=== PATIENT | male | born 1950 | race Caucasian/White ===

== ENCOUNTER 2022-03-18 14:19 | Outpatient (RCR) | payer MEDICARE, SELFPAY ==
--- NOTE | ~2022-03-18 | XR_ITS ---
EXAMINATION: XR FOOT, RIGHT CLINICAL INFORMATION: Great toe wound COMPARISON: Previous x-ray March 2022 TECHNIQUE: AP, lateral, and oblique views of the right foot. FINDINGS: There is increasing bone destruction or osteomyelitis of the proximal and distal phalanx of the great toe. There is a Hologic fracture of the proximal phalanx of the great toe. There is increasing overlying soft tissue swelling. There are old deformities of the second and third tarsal head that appear unchanged questionable for old fracture versus Freiberg infarction or osteonecrosis. There is arthritis and contracture of the IP joints. There are calcaneal spurs. XR/XR foot RT min 3V IMPRESSION: Increasing bone loss and destruction of the proximal and distal phalanx of the great toe and new pathologic fracture of the distal aspect of the proximal phalanx of the great toe. Increasing overlying soft tissue swelling.
--- NOTE | ~2022-03-18 | XR_ITS ---
EXAMINATION: XR FOOT, RIGHT CLINICAL INFORMATION: Abscess right great toe COMPARISON: None TECHNIQUE: AP, lateral, and oblique views of the right foot. FINDINGS: There is ostial lysis of the shaft of the distal phalanx of the great toe suggestive of osteomyelitis. There is surrounding soft tissue swelling and overlying dressing. There is deformity of the second and third metatarsal heads, question related to old trauma or possibly old Freiberg's infarction or osteonecrosis. There is mild arthritis at the first MTP joint. There are calcaneal spurs. There is soft tissue arterial calcification. XR/XR foot RT min 3V IMPRESSION: Osteomyelitis of the distal tuft of the great toe.
== END 2022-06-17 15:00 | disposition home or self-care (01) ==
LOC: HO.WCC 14:19
PROVIDERS: PCP Nurse Practitioner Adult Health; Visit Provider Surgery
DX: E11.621 Type 2 diabetes mellitus with foot ulcer (principal); L97.512 Non-pressure chronic ulcer of other part of right foot with fat layer exposed; E11.69 Type 2 diabetes mellitus with other specified complication; M86.671 Other chronic osteomyelitis, right ankle and foot; M20.61 Acquired deformities of toe(s), unspecified, right foot; Z79.82 Long term (current) use of aspirin; Z79.4 Long term (current) use of insulin; Z79.891 Long term (current) use of opiate analgesic; Z79.899 Other long term (current) drug therapy
CPT/HCPCS: 11042; 11044; 73630; 87071; 87077; 87186; 87205; 88304; 88305; 88311; 97597; 99212; 99213

== ENCOUNTER → 2022-05-21 08:47 | Outpatient (BNVA) | payer MEDICARE, SELFPAY | PROVIDERS: PCP Nurse Practitioner Adult Health; Visit Provider Surgery | DX: M86.9 Osteomyelitis, unspecified (principal); S91.101D Unspecified open wound of right great toe without damage to nail, subsequent encounter; E11.9 Type 2 diabetes mellitus without complications | CPT/HCPCS: 99202 ==

== ENCOUNTER 2022-07-07 07:30 | Day surgery (SDC) | payer MEDICARE, SELFPAY ==
[2022-06-08 12:09] VITALS: BP 141/67; PULSE 69; RESP 20; O2SAT 98; BMI 31.4
--- NOTE | 2022-06-08 12:24 | HO.ANESPROP2 ---
Documented by User: Latia Swan NP 07/05/22 08:12 HPI - Anesthesia Eval Consult details Narrative: 72yo M for Right Great Toe Amputation 07/07/22 CABG x 4 in 2019. Optimized per cardiology. +MRSA in toe wound, on doxycycline PMFSH Active Problems Active Problems: All Active Problems (Updated 06/08/22 @ 12:12 by Kelly Rodriguez RN) Non-healing open wound of toe (Acute) Osteomyelitis (Acute) CAD (coronary artery disease) (Acute) Diabetes mellitus (Acute) Past Medical History Medical History Arthritis CAD (coronary artery disease) COPD (chronic obstructive pulmonary disease) COVID-19 vaccine series completed Diabetes mellitus Elevated cholesterol History of MRSA infection HTN (hypertension) Ischemic cardiomyopathy Osteomyelitis Surgical History Surgical History H/O colonoscopy History of arthroplasty of right knee History of quadruple bypass Hx of fusion of cervical spine Hx of right hemicolectomy S/P debridement Social History Social History Are you a primary manager managed care to a significant other at home: No Do you presently have visiting nurse or other home services: Yes ([facility]NA for wound checks) Alcohol intake: never Patient Tobacco Use Status: Former Tobacco user Quit Date: 2018 Tobacco use type: Cigarette Cigarette Packs Per Day: 2.5 Cigarettes Per Day: 50.0 Years Smoked: 53 Use of substances other than those prescribed or required for medical reasons: Yes Substance Use Frequency: Weekly Have you been hit, kicked, punched, or otherwise hurt by someone within the past year? If so, by whom?: No Are you DNR?: No Advance Directives: No Advance Directives Information Provided: Yes (brochure given) Advance Directives on File: No Recently lost weight without trying: No Eating poorly because of decreased appetite: No Nutrition Risks: No Nutritional Risk Narrative Narrative: No recent illness No CP/SOB with yard work FBS ~99-117 Meds Allergies Allergy/AdvReac Type Severity Reaction Status Date / Time daptomycin Allergy Severe Anaphylaxis Verified 06/08/22 12:05 Home Medications Medication Instructions Recorded Confirmed Last Taken Type amlodipine 10 mg tablet 10 mg PO DAILY 05/21/22 06/07/22 07/07/22 History aspirin 81 mg tablet,delayed 81 mg PO BEDTIME 05/21/22 06/08/22 07/07/22 History release atorvastatin 80 mg tablet 80 mg PO DAILY 05/21/22 06/07/22 Unknown History blood sugar diagnostic (FreeStyle #10 ea 05/21/22 05/21/22 Unknown History Lite Strips) carvedilol 12.5 mg tablet 12.5 mg PO BID 05/21/22 06/07/22 07/07/22 History doxycycline hyclate 100 mg capsule 100 mg PO BID 05/21/22 06/07/22 07/07/22 History insulin lispro 200 unit/mL (3 mL) 20 - 25 unit subcut TIDAC 05/21/22 06/08/22 Unknown History subcutaneous pen (Humalog KwikPen U-200 Insulin) albuterol sulfate 2.5 mg/3 mL 1 vial inhalation Q4H PRN wheezing 06/07/22 06/07/22 Unknown History (0.083 %) solution for nebulization albuterol sulfate 90 mcg/actuation 2 puff inhalation Q6H PRN cough 06/07/22 06/07/22 Unknown History aerosol inhaler insulin glargine 100 unit/mL (3 70 unit subcut BEDTIME 06/07/22 06/07/22 Unknown History mL) subcutaneous pen (Lantus Solostar U-100 Insulin) Exam Exam Date and Time: June 08, 2022 1224 Height,Weight and Vital Signs: Height 6 ft 2 in Weight 110.9 kg Last Vital Signs Pulse 69 06/08/22 12:09 Resp 20 06/08/22 12:09 BP 141/67 H 06/08/22 12:09 Pulse Ox 98 06/08/22 12:09 O2 Del Method 06/08/22 12:09 Pertinent Lab Results Pertinent Lab Results: Laboratory Tests 06/08/22 06/08/22 12:57 12:57 WBC 7.3 Hgb 11.6 L Hct 35.3 L Plt Count 235 Sodium 142 Potassium 4.1 Chloride 109 H Carbon Dioxide 26 BUN 16 Creatinine 1.06 Narrative Narrative: EKG 05/2022 SR with 1st degree AV block LAD LVH with QRS widening ECHO 04/2020 Nml LV size. Mild conc LVH. Nml RWM Nml LV systolic function. LVEF 55-60%. E-A reversal c/w mild diastolic relaxation abnormality Trace MR C/W 05/2019, the LV systolic function has improved Airway Mallampati Class: II TM Dist: >3cm Neck ROM: Full (cervical fusion) Denture: Upper Partial: Lower Heart: RRR Lungs: CTAB Assessment and Plan Assessment Anesthesia Assessment: Anesthesia Plan Discussed and PAT Visit Documented by User: Neeta Cervantes MD 07/07/22 08:13 [facility] Past Medical History Medical History Arthritis CAD (coronary artery disease) COPD (chronic obstructive pulmonary disease) COVID-19 vaccine series completed Diabetes mellitus Elevated cholesterol History of MRSA infection HTN (hypertension) Ischemic cardiomyopathy Osteomyelitis Functional capacity: uses cane/walker Family History Family history of problems with anesthesia: No Surgical History Surgical History H/O colonoscopy History of arthroplasty of right knee History of quadruple bypass Hx of fusion of cervical spine Hx of right hemicolectomy S/P debridement History of Problems with Anesthesia: No Social History Social History Are you a primary manager managed care to a significant other at home: No Do you presently have visiting nurse or other home services: Yes (VNA for wound checks) Alcohol intake: never Patient Tobacco Use Status: Former Tobacco user Quit Date: 2018 Tobacco use type: Cigarette Cigarette Packs Per Day: 2.5 Cigarettes Per Day: 50.0 Years Smoked: 53 Use of substances other than those prescribed or required for medical reasons: Yes Substance Use Frequency: Weekly Have you been hit, kicked, punched, or otherwise hurt by someone within the past year? If so, by whom?: No Are you DNR?: No Advance Directives: No Advance Directives Information Provided: Yes (brochure given) Advance Directives on File: No Recently lost weight without trying: No Eating poorly because of decreased appetite: No Nutrition Risks: No Nutritional Risk Meds Allergies Allergy/AdvReac Type Severity Reaction Status Date / Time daptomycin Allergy Severe Anaphylaxis Verified 06/08/22 12:05 Home Medications Medication Instructions Recorded Confirmed Last Taken Type amlodipine 10 mg tablet 10 mg PO DAILY 05/21/22 06/07/22 07/07/22 History aspirin 81 mg tablet,delayed 81 mg PO BEDTIME 05/21/22 06/08/22 07/07/22 History release atorvastatin 80 mg tablet 80 mg PO DAILY 05/21/22 06/07/22 Unknown History blood sugar diagnostic (FreeStyle #10 ea 05/21/22 05/21/22 Unknown History Lite Strips) carvedilol 12.5 mg tablet 12.5 mg PO BID 05/21/22 06/07/22 07/07/22 History doxycycline hyclate 100 mg capsule 100 mg PO BID 05/21/22 06/07/22 07/07/22 History insulin lispro 200 unit/mL (3 mL) 20 - 25 unit subcut TIDAC 05/21/22 06/08/22 Unknown History subcutaneous pen (Humalog KwikPen U-200 Insulin) albuterol sulfate 2.5 mg/3 mL 1 vial inhalation Q4H PRN wheezing 06/07/22 06/07/22 Unknown History (0.083 %) solution for nebulization albuterol sulfate 90 mcg/actuation 2 puff inhalation Q6H PRN cough 06/07/22 06/07/22 Unknown History aerosol inhaler insulin glargine 100 unit/mL (3 70 unit subcut BEDTIME 06/07/22 06/07/22 Unknown History mL) subcutaneous pen (Lantus Solostar U-100 Insulin) Assessment and Plan Final Anesthetic Review Family History of Problems with Anesthesia: No History of Problems with Anesthesia: No NPO: Yes ASA Class: III Final Preanesthetic Review: No Changes in Pt Med Stat, Meds/Allgs Chart Reviewed, Consent Obtained/Reviewed and Anes Risks/Benef Reviewed Patient Risk: Intermediate Procedure Risk: Low Anesthetic Plan Anesthetic Plan: GA and MAC: Disposition: Standard PACU
[2022-06-08 13:18] LABS: Hematocrit 35.3 % (42.0-52.0); Hemoglobin 11.6 g/dl (14.0-18.0); Mean Corpuscular HGB Conc 32.9 g/dl (31.0-36.0); Mean Corpuscular Hemoglobin 28.2 pg (27.0-33.0); Mean Corpuscular Volume 85.9 fL (80.0-98.0); Mean Platelet Volume 10.3 fL (9.4-12.4); Platelet Count 235 X10*3/uL (160-400); Red Blood Count 4.11 X10*6/uL (4.60-5.80); Red Cell Distribution Width 14.8 % (11.0-16.0); White Blood Count 7.3 X10*3/uL (4.8-10.8)
[2022-06-08 13:38] LABS: Anion Gap 11 (12-20); Blood Urea Nitrogen 16 mg/dL (9-16); Calcium 9.3 mg/dL (8.4-10.2); Carbon Dioxide 26 mmol/L (22-29); Chloride 109 mmol/L (96-108); Estimated Glomerular Filt Rate > 60; Glucose Random 104 mg/dL (60-115); Potassium 4.1 mmol/L (3.3-5.1); Sodium 142 mmol/L (135-145)
[2022-07-07 07:59] VITALS: BP 157/87; PULSE 75; RESP 18; TEMP 36.2; O2SAT 98; BMI 31.0
[2022-07-07 08:24] LABS: Glucose, Whole Blood 105 mg/dL (60-115)
[2022-07-07 08:28] VITALS: BMI 31.0
--- NOTE | 2022-07-07 08:40 | MHC.SHP ---
Pre-Procedural Eval Section A Date of Service: 07/07/22 The patient is an INPATIENT: No Changes since office visit: Yes Patient answered all questions; No Cold of Flu in the past 2 weeks, No New Medical Problems and No Changes in Medication The History & Physical has been completed within 30 days and I have reviewed it.: No Section B Chief Complaint: osteoarthritis,open wound Details of Present Illness: 72-year-old male patient with a nonhealing wound of the right great toe found to have osteomyelitis by x-ray. Presents today for amputation of the right great toe. Relevant Family History (Specify if Yes): No Relevant Social History: None Present Medications: see Short Stay Collaborative assessment Medical History: Significant History (CAD, diabetes mellitus) History of Previous Operations: Relevant previous surgery/procedure and date(s) (CABG x4 vessels, knee arthroscopy, back surgery) Allergies: Allergies Allergy/AdvReac Type Severity Reaction Status Date / Time daptomycin Allergy Severe Anaphylaxis Verified 06/08/22 12:05 Review of Systems Sugical H&P ROS: Negative: Constitution, Cardiovascular, Respiratory, Neurological, Psychiatric, Hem-Onc, Allergic/Immunologic, Gastrointestinal, Genitourinary, Musculoskeletal, Integumentary, Endocrine and Eyes/Ears/Nose/Throat Exam Surgical H&P Exam: Normal: HEENT, Normal: Heart, Normal: Lungs, Normal: Abdomen, Normal: Skin and Normal: Neurological and Significant Findings: Extremities (Open wound of right great toe tip) Plan Diagnosis/Plan: Unchanged I have reviewed the history and physical and performed a pertinent physical examination on my patient. No changes have occurred unless specified.
[2022-07-07] MEDS: Lactated Ringers 1,000 ML 50 ML IVCONT (08:50)
--- NOTE | 2022-07-07 09:58 | P.OP_ITS ---
Operative Note Operative Note Date of Service: 07/07/22 Narrative: Preoperative diagnosis: Osteomyelitis right great toe Postoperative diagnosis: Same Procedure: Amputation right great toe Surgeon: Grant Alcaraz MD Deputy Prosecuting Attorney: ABBY Paniagua Anesthesia: General LMA Indications for procedure: 72-year-old male patient with persistent draining wound on the right great toe found to have osteomyelitis of the distal phalanx. He presents today for ray amputation right great toe. Operative findings: Healthy-appearing proximal phalanx and distal metatarsal head. No abscess appreciated. Specimen: Right great toe Estimated blood loss: 5 mL Complications: None Procedure details: Patient was brought to the OR placed in a supine position. After administering general anesthesia the patient's right foot was prepped Betadine and draped in a sterile fashion. A surgical time-out was called the consent confirmed. Patient received preoperative antibiotics and Venodyne boots were in place. Local anesthesia consisting of 0.5% Sensorcaine was infiltrated as a digital block. An elliptical incision was then created at the base of the right great toe carried down to the proximal phalanx. Electrocautery was then used to dissect along the proximal phalanx to the junction with the distal metatarsal head. The toe was completely amputated using electrocautery and passed off the table to be sent to pathology. Rongeur was then used to resect the metatarsal head. Hemostasis was assured using electrocautery. Wounds were then irrigated with saline solution and suctioned dry. Deep dermis was then reapproximated using interrupted 3-0 Polysorb sutures. Skin was then closed using interrupted 3-0 nylon suture in a mattress formation. Sterile dressings consisting of fluff gauze, ABD pads, and Kerlix were then applied. This was then covered with an Que bandage. The patient tolerated procedure well. Sponge, instrument, and needle counts reported as correct. The patient was transferred to PACU in stable condition.
[2022-07-07 10:05] VITALS: BP 95/50; PULSE 69; RESP 16; TEMP 36.8; O2SAT 96
[2022-07-07 10:10] VITALS: BP 98/60; PULSE 70; RESP 16; O2SAT 95
[2022-07-07 10:15] VITALS: BP 114/68; PULSE 69; RESP 16; O2SAT 96
[2022-07-07 10:20] VITALS: BP 125/68; PULSE 69; RESP 16; O2SAT 97
[2022-07-07 10:35] VITALS: BP 124/70; PULSE 70; RESP 18; TEMP 36.7; O2SAT 97
--- NOTE | 2022-07-07 14:35 | HO.POSTANES ---
Post Anesthesia Evaluation Post Anesthesia Evaluation Vital Signs: Vital Signs Temp Pulse Resp BP Pulse Ox O2 Del Method 07/07/22 10:35 98.1 F 70 18 124/70 97 Room Air 07/07/22 10:20 69 16 125/68 97 Room Air 07/07/22 10:15 69 16 114/68 96 Room Air 07/07/22 10:10 70 16 98/60 95 Room Air 07/07/22 10:05 98.3 F 69 16 95/50 L 96 Room Air 07/07/22 07:59 97.1 F 75 18 157/87 H 98 Room Air Anesthesia: General LMA Mental Status: Awake Pain Control: Satisfactory Nausea/Vomiting: None Hydration: Adequate Anesthesia-Related Issues: No Anes. Related Issues
== END 2022-07-07 11:01 | disposition home or self-care (01) ==
PROVIDERS: PCP Nurse Practitioner Adult Health; Visit Provider Surgery
PROC: (CPT 28810; principal; 2022-07-07 09:40)
DX: M86.9 Osteomyelitis, unspecified (principal); S91.109A Unspecified open wound of unspecified toe(s) without damage to nail, initial encounter; E10.69 Type 1 diabetes mellitus with other specified complication; Z79.4 Long term (current) use of insulin; Z86.14 Personal history of Methicillin resistant Staphylococcus aureus infection; I25.10 Atherosclerotic heart disease of native coronary artery without angina pectoris; Z95.1 Presence of aortocoronary bypass graft; Z87.891 Personal history of nicotine dependence; Z79.82 Long term (current) use of aspirin; Z79.899 Other long term (current) drug therapy
CPT/HCPCS: 28810; 36415; 80048; 82947; 85027; 88305; 88311; J0690; J2250; J2795; J3010